=== PATIENT | male | born 2000 | race Caucasian/White ===

== ENCOUNTER 2021-06-25 20:17 | Emergency (ER) | payer OTHER ==
[2021-06-25 20:40] LABS: HEMOGLOBIN 14.1 gm/dl (14.0-17.5); RED BLOOD COUNT 4.37 M/UL (4.20-5.50); WHITE BLOOD COUNT 7.5 K/UL (4.5-11.0)
[2021-06-25 20:57] LABS: BUN/CREATININE RATIO 6 (0-10)
[2021-06-25] MEDS ORDERED: PERCOCET 5/325 T1 EA PO (23:07)
== END 2021-06-25 23:29 | disposition home or self-care (01) ==
LOC: ER1 20:17
PROVIDERS: Family Medicine
DX: S80.211A Abrasion, right knee, initial encounter (principal); M54.2 Cervicalgia; V19.9XXA Pedal cyclist (driver) (passenger) injured in unspecified traffic accident, initial encounter
CPT/HCPCS: 70498; 71045; 72125; 80053; 85025; 99284; J2270; J2405; Q9967

== ENCOUNTER 2021-10-04 14:26 | Emergency (ER) | payer OTHER ==
[~2021-10-04 14:26] MED LIST: PERCOCET 5/325 T1 EA PO
[2021-10-04 17:51] LABS: HEMOGLOBIN 15.4 gm/dl (14.0-17.5); RED BLOOD COUNT 4.68 M/UL (4.20-5.50); WHITE BLOOD COUNT 5.6 K/UL (4.5-11.0)
[2021-10-04 18:18] LABS: BUN/CREATININE RATIO 11 (0-10)
== END 2021-10-04 15:28 | disposition home or self-care (01) ==
LOC: ER1 14:26
PROVIDERS: Emergency Medicine
DX: R07.2 Precordial pain (principal); R07.89 Other chest pain
CPT/HCPCS: 71045; 80048; 84484; 85025; 93005; 99285